=== PATIENT | female | born 1960 | race Two or more races ===

== ENCOUNTER 2022-06-15 10:15 | Inpatient (IN) | payer OTHER ==
[~2022-06-15] VITALS: Ht 157.5 cm; Wt 74.8 kg
[2022-06-15] MEDS ORDERED: LEVO-T50 MCG PO (11:53)
[2022-06-15] MEDS ORDERED: COZAAR100 MG PO (11:54)
[2022-06-21] MEDS ORDERED: ROSUVASTATIN CA10 MG (10:40)
== END 2022-06-21 14:29 | disposition home or self-care (01) | DRG 743 ==
LOC: O/R 06-18 05:11 → OB/GYN 06-18 07:00
PROVIDERS: ADMIT Specialist; ATTEND Specialist
PROC: 0UT00ZZ Resection of Right Ovary, Open Approach (ICD-10-PCS; principal; 2022-06-18 07:00)
DX: D27.0 Benign neoplasm of right ovary (principal); Z20.822 Contact with and (suspected) exposure to COVID-19

== ENCOUNTER 2025-03-15 11:00 | Day surgery (SDC) | payer OTHER ==
[2025-03-14 09:18] LABS: BASO % 0.4 % (0.1-1.2); EOS # 0.07 (0.04-0.54); EOS % 0.9 % (0.7-7.0); LYMPH # 1.65 (1.18-3.74); LYMPH % 21.2 % (19.3-53.1); MEAN PLATELET VOLUME 10.20 fl (9.4-12.4); MONO # 0.40 (0.24-0.82); MONO % 5.1 % (4.7-12.5); NEUT # 5.62 (1.56-6.13); NEUT % 72.1 % (34.0-71.1); RED CELL DISTRIBUTION WIDTH 11.5 % (11.6-14.4)
[2025-03-14 09:21] LABS: URINE APPEARANCE Clear; URINE BILIRRUBIN Negative (NEGATIVE); URINE BLOOD Moderate; URINE COLOR Yellow; URINE GLUCOSE Negative (NEGATIVE); URINE KETONE Negative (NEGATIVE); URINE LEUKOCYTE Negative; URINE NITRATE Negative; URINE UROBILINOGEN 0.2 E.U./dl
[2025-03-14 09:35] LABS: URINE BACTERIA 262.7 uL (0.0-1933); URINE EPITHELIAL CELLS 29.6 uL (0.0-38.8); URINE RBC 139.3 uL (0.0-20.8); URINE WBC 30.6 uL (0.0-23.2)
[2025-03-14 09:36] LABS: COVID-19 AG NEGATIVE (NEGATIVE)
[2025-03-14 09:41] LABS: INR 1.08
[2025-03-14 09:42] LABS: URINE CAST 0.43 uL (0.0-1.40); URINE PROTEIN 300 (NEGATIVE)
[2025-03-14 10:07] LABS: ALT/SGPT 38.0 U/L (12-78); AST/SGOT 17.0 U/L (15-37); BILIRUBIN TOTAL 0.55 mg/dL (0.3-1.2); BUN CREA RATIO 29.0 (7.0-25.0); CREATININE SERUM 0.78 mg/dL (0.55-1.02); GFR 74.12; GLOBULINA 3.7 G/DL (2.4-3.5); GLUCOSE FASTING 123.0 mg/dL (65-100); OSMOLALITY SERUM 290.0 MOSM/KG (275-295)
[2025-03-14 10:14] VITALS: BP 168/71
[~2025-03-15] VITALS: Ht 157.5 cm; Wt 79.4 kg
[~2025-03-15 11:00] MED LIST: COZAAR100 MG PO; LEVO-T50 MCG PO; NORVASC2.5 M1 PO; ROSUVASTATIN CA10 MG
[2025-03-15] MEDS ORDERED: CEFAZOLIN SODIUM 1,000 MG VIAL ONE (11:09)
== END 2025-03-15 16:50 | disposition home or self-care (01) ==
LOC: CIR.AMB 11:00
PROVIDERS: ATTEND Surgery
DX: D48.61 Neoplasm of uncertain behavior of right breast (principal); R92.0 Mammographic microcalcification found on diagnostic imaging of breast; D24.1 Benign neoplasm of right breast; N60.81 Other benign mammary dysplasias of right breast